=== PATIENT | female | born 1990 | race Hispanic/Latino ===

== ENCOUNTER 2017-08-14 08:40 | Emergency (ER) | payer OTHER ==
[~2017-08-14] VITALS: Ht 170.2 cm; Wt 65.1 kg
[~2017-08-14 08:40] MED LIST: Ascorbic Acid,Ester- PO; Chronulac,Cephulac,E PO; DOCUSATE SODIU100 MG PO; ENDOCET 5-3251 EACH PO; Ecotrin PO; FERROUS SULFAT325 MG PO; Feosol PO; Folvite PO; IBUPROFEN800 MG PO; LIDODERM 5% P1 PATCH TD; Miralax, Glycolax PO; Natalcare Rx,Pramile PO; Oscal 500 w/Vitamin PO; OxyCONTIN PO; PRENATAL TABLE1 EACH PO; Robitussin DM PO; Senokot S,Pericolace PO; THERAGRAN1 TABLET PO; Tamiflu PO; Tylenol Extra Streng PO; Tylenol Regular Stre PO; oxyCODONE PO
[2017-08-14] MEDS ORDERED: XYLOCAINE VISC100 ML PO (11:12)
[2017-08-14 11:35] VITALS: BP 116/77
== END 2017-08-14 11:37 | disposition home or self-care (01) ==
LOC: EME 08:40
PROVIDERS: Nurse Practitioner Family
DX: B34.9 Viral infection, unspecified (principal); J02.9 Acute pharyngitis, unspecified
CPT/HCPCS: 71046; 87502; 87651 90; 99281; 99283

== ENCOUNTER 2017-12-29 00:07 | Emergency (ER) | payer OTHER ==
[~2017-12-29] VITALS: Ht 167.6 cm; Wt 65.6 kg
[~2017-12-29 00:07] MED LIST changes: +XYLOCAINE VISC100 ML PO
[2017-12-29 00:46] LABS: HEMATOCRIT 38.1 % (36.0-46.0); HEMOGLOBIN 12.3 G/DL (11.9-15.5); MCH 24.2 PG (29.0-34.0); MCHC 32.3 G/DL (30.0-36.0); PLATELET COUNT 357 K/uL (156-360); RBC DIS.WIDTH-CV 22.4 % (11.8-14.6); RBC DIS.WIDTH-SD 58.3 % (39-53); RED BLOOD COUNT 5.08 M/uL (3.80-5.20); WHITE BLOOD COUNT 5.4 K/uL (4.1-10.2)
[2017-12-29 01:11] LABS: CHLORIDE 105 mEq/L (99-109); POTASSIUM 3.6 mEq/L (3.7-5.4); SODIUM 139 mEq/L (136-147)
[2017-12-29 01:13] LABS: GLUCOSE 98 mg/dL (70-99)
[2017-12-29 01:17] LABS: CREATININE 0.7 mg/dL (0.6-1.3); GFR ESTIMATE (CALCULATED) > 59 mL/min/
[2017-12-29 01:18] LABS: UREA NITROGEN (BUN) 16 mg/dL (9-23)
[2017-12-29 01:25] LABS: TROP-I INTERPRETATION NEGATIVE; TROPONIN-I < 0.01 ng/mL (0.0-0.30)
[2017-12-29 01:50] LABS: MAGNESIUM 2.3 mg/dL (1.3-2.7)
[2017-12-29 01:52] LABS: D-DIMER ELISA < 150.00 ng/mLDDU (<230)
[2017-12-29 01:55] LABS: PHOSPHORUS 3.3 mg/dL (2.5-4.9)
[2017-12-29 02:03] LABS: QUANTITATIVE HCG < 4.0 MIU/ML
[2017-12-29 02:26] LABS: APPEARANCE SL.HAZY ((CLEAR)); BILIRUBIN NEGATIVE; BLOOD SMALL; COLOR YELLOW ((YELLOW)); GLUCOSE (STRIP) NEGATIVE; KETONES NEGATIVE; LEUKOCYTES TRACE; NITRITE NEGATIVE; PROTEIN (STRIP) NEGATIVE; SPECIFIC GRAVITY 1.023 (1.000-1.030); UROBILINOGEN 0.2 MG/DL (0.2-1.0)
[2017-12-29 02:31] LABS: BACTERIA RARE /HPF; EPITHELIAL CELLS 1+ /HPF; MUCUS TRACE /LPF; RED BLOOD CELLS 0-5 /HPF (0-5); UCUL ADDED? NO; WHITE BLOOD CELLS 0-5 /HPF (0-5)
[2017-12-29] MEDS ORDERED: ATARAX,VISTARIL25 MG PO (02:36)
[2017-12-29 03:07] VITALS: BP 126/91
[2017-12-29 07:18] LABS: THYROTROPIN (TSH) 5.7 MIU/L (0.4-5.5)
== END 2017-12-29 03:07 | disposition home or self-care (01) ==
LOC: EME 00:07
PROVIDERS: Emergency Medicine
DX: F41.1 Generalized anxiety disorder (principal); R06.02 Shortness of breath; R07.89 Other chest pain
CPT/HCPCS: 71046; 80048; 81003; 83735; 84100; 84443; 84484; 84702; 85027; 85379; 93005; 99281; 99284; Q0177

== ENCOUNTER 2017-12-31 23:21 | Emergency (ER) | payer OTHER ==
[~2017-12-31] VITALS: Ht 167.6 cm; Wt 64.9 kg
[~2017-12-31 23:21] MED LIST changes: +ATARAX,VISTARIL25 MG PO
[2018-01-01 00:27] LABS: HEMATOCRIT 37.7 % (36.0-46.0); HEMOGLOBIN 12.2 G/DL (11.9-15.5); MCH 24.4 PG (29.0-34.0); MCHC 32.4 G/DL (30.0-36.0); MCV 75.4 FL (83-99); PLATELET COUNT 350 K/uL (156-360); RBC DIS.WIDTH-CV 22.3 % (11.8-14.6); RBC DIS.WIDTH-SD 58.2 % (39-53)
[2018-01-01 00:57] LABS: CHLORIDE 106 mEq/L (99-109); POTASSIUM 3.7 mEq/L (3.7-5.4); SODIUM 139 mEq/L (136-147)
[2018-01-01 00:58] LABS: GLUCOSE 101 mg/dL (70-99)
[2018-01-01 01:02] LABS: CREATININE 0.8 mg/dL (0.6-1.3); GFR ESTIMATE (CALCULATED) > 59 mL/min/
[2018-01-01 01:03] LABS: UREA NITROGEN (BUN) 14 mg/dL (9-23)
[2018-01-01 03:11] VITALS: BP 129/88
== END 2018-01-01 03:13 | disposition home or self-care (01) ==
LOC: EME 23:21
PROVIDERS: Emergency Medicine
DX: F41.1 Generalized anxiety disorder (principal); F43.9 Reaction to severe stress, unspecified
CPT/HCPCS: 80048; 85027; 90839; 93005; 99281; 99283

== ENCOUNTER 2018-01-01 07:02 | Emergency (ER) | payer OTHER ==
[~2018-01-01] VITALS: Ht 167.6 cm; Wt 64.5 kg
[2018-01-01 10:04] LABS: HEMATOCRIT 43.1 % (36.0-46.0); HEMOGLOBIN 13.7 G/DL (11.9-15.5); MCH 24.1 PG (29.0-34.0); MCHC 31.8 G/DL (30.0-36.0); MCV 75.9 FL (83-99); PLATELET COUNT 324 K/uL (156-360); RBC DIS.WIDTH-CV 22.4 % (11.8-14.6); RBC DIS.WIDTH-SD 58.1 % (39-53); RED BLOOD COUNT 5.68 M/uL (3.80-5.20); WHITE BLOOD COUNT 5.1 K/uL (4.1-10.2)
[2018-01-01 10:12] LABS: ALBUMIN 4.8 g/dL (3.2-4.8); CHLORIDE 107 mEq/L (99-109)
[2018-01-01 10:13] LABS: POTASSIUM 3.8 mEq/L (3.7-5.4); SODIUM 140 mEq/L (136-147)
[2018-01-01 10:15] LABS: GLUCOSE 90 mg/dL (70-99); TOTAL PROTEIN 8.9 g/dL (6.4-8.3)
[2018-01-01 10:17] LABS: TOTAL BILIRUBIN 0.6 mg/dL (0.0-1.0)
[2018-01-01 10:18] LABS: ALKALINE PHOSPHATASE 60 IU/L (3-129); SERUM ETHYL ALCOHOL < 10 mg/dL
[2018-01-01 10:19] LABS: CREATININE 0.8 mg/dL (0.6-1.3); GFR ESTIMATE (CALCULATED) > 59 mL/min/
[2018-01-01 10:20] LABS: AST (GOT) 18 IU/L (2-34); DIRECT BILIRUBIN 0.3 mg/dL (0.0-0.3); UREA NITROGEN (BUN) 13 mg/dL (9-23)
[2018-01-01 10:22] LABS: ALT (GPT) 19 IU/L (3-49)
[2018-01-01 10:29] LABS: BASOPHIL (%) 0.6 % (0-1); EOSINOPHIL (%) 1.6 % (0-5); EOSINOPHIL COUNT 0.1 K/uL (0-0.3); IMMATURE GRANULOCYTE (%) 0.2 % (0.0-0.7); LYMPHOCYTE (%) 23.4 % (15-42); LYMPHOCYTE COUNT 1.2 K/uL (1.0-2.8); MONOCYTE (%) 4.9 % (3-12); MONOCYTE COUNT 0.3 K/uL (0-0.8); NEUTROPHIL (%) 69.3 % (45-76); NEUTROPHIL COUNT 3.5 K/uL (1.8-6.4)
[2018-01-01 11:45] VITALS: BP 131/78
== END 2018-01-01 11:50 | disposition home or self-care (01) ==
LOC: EME 07:02
PROVIDERS: Emergency Medicine
DX: F41.9 Anxiety disorder, unspecified (principal); F43.0 Acute stress reaction
CPT/HCPCS: 80048 91; 80076; 85025; 90839; 99281; 99285; G0480; J7030